=== PATIENT | male | born 1990 | race Caucasian/White ===

== ENCOUNTER 2019-12-18 15:47 | Outpatient (CLI) | payer OTHER | END 2019-12-18 23:59 | disposition home or self-care (01) | LOC: RAD 15:47 | PROVIDERS: ATTEND Nurse Practitioner Family | DX: J01.80 Other acute sinusitis (principal); R10.9 Unspecified abdominal pain; R11.0 Nausea; R31.9 Hematuria, unspecified | CPT/HCPCS: 74176 ==